=== PATIENT | female | born 1990 | race Caucasian/White ===

== ENCOUNTER 2024-06-28 01:34 | Emergency (ER) | payer SELFPAY ==
[~2024-06-28] VITALS: Ht 149.9 cm; Wt 61.2 kg
[2024-06-28 01:49] VITALS: O2SAT 97
[2024-06-28 02:50] VITALS: BP 138/82; PULSE 90; RESP 20; TEMP 37.11408; O2SAT 99
== END 2024-06-28 02:51 | disposition home or self-care (01) ==
LOC: ER 01:55
DX: R42 Dizziness and giddiness (principal); Z00.00 Encounter for general adult medical examination without abnormal findings
CPT/HCPCS: 99281